=== PATIENT | female | born 1985 ===

== ENCOUNTER 2017-10-10 09:29 | Emergency (ER) | payer OTHER ==
[~2017-10-10] VITALS: Ht 157.5 cm; Wt 63.5 kg
[~2017-10-10 09:29] MED LIST: AMOX1TAB12 PO; AMOX1TAB5 PO; CHEST CONG100 MG/5 M PO; CIPRO500 MG PO; OSEL75CA PO; PEPCID20 MG PO; PREVACID30 MG PO; TUSSI-ORGANIDI473 M2 PO; TUSSI-PRES B LIQ5 ML PO; ZANTAC150 M3 PO; ZANTAC300 MG
== END 2017-10-10 15:49 | disposition home or self-care (01) ==
LOC: ER 09:29
DX: M25.551 Pain in right hip (principal); M54.89 Other dorsalgia

== ENCOUNTER 2017-10-16 11:20 | Outpatient (CLI) | payer OTHER | END 2017-10-16 11:34 | disposition home or self-care (01) | LOC: LAB 11:20 | DX: O00.109 Unspecified tubal pregnancy without intrauterine pregnancy (principal) ==

== ENCOUNTER → 2017-10-19 | Outpatient (CLI) | payer OTHER | END | disposition home or self-care (01) | LOC: LAB 08:00 | DX: O00.109 Unspecified tubal pregnancy without intrauterine pregnancy (principal) ==

== ENCOUNTER 2021-01-22 12:44 | Emergency (ER) | payer OTHER ==
[~2021-01-22] VITALS: Ht 157.5 cm; Wt 67.1 kg
== END 2021-01-22 20:45 | disposition home or self-care (01) ==
LOC: ER 12:44
DX: S92.414A Nondisplaced fracture of proximal phalanx of right great toe, initial encounter for closed fracture (principal); W22.8XXA Striking against or struck by other objects, initial encounter; Y93.89 Activity, other specified; Y92.89 Other specified places as the place of occurrence of the external cause; Y99.8 Other external cause status